=== PATIENT | male | born 1995 | race African-American/Black ===

== ENCOUNTER 2018-10-22 17:29 | Emergency (ER) | payer OTHER ==
[~2018-10-22] VITALS: Ht 175.3 cm; Wt 75.2 kg
[2018-10-22] MEDS ORDERED: ZOLO50TA PO (17:46)
[2018-10-22] MEDS ORDERED: TRAZ-186 PO (17:46)
[2018-10-22] MEDS ORDERED: ACETAMINOPHEN 325 MG TAB PO ONE (18:30)
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
[2018-10-22] MEDS ORDERED: IBUP-1022 PO (18:54)
[2018-10-22] MEDS ORDERED: ROBA500T PO (18:54)
[2018-10-22 18:57] VITALS: BP 113/61
== END 2018-10-22 19:05 | disposition home or self-care (01) ==
LOC: M ED 17:29
DX: S16.1XXA Strain of muscle, fascia and tendon at neck level, initial encounter (principal); S06.0X0A Concussion without loss of consciousness, initial encounter; V88.9XXA Person injured in other specified (collision)(noncollision) transport accidents involving nonmotor vehicle, nontraffic, initial encounter; Y92.89 Other specified places as the place of occurrence of the external cause; Z79.899 Other long term (current) drug therapy

== ENCOUNTER 2019-06-02 13:21 | Inpatient (IN) | payer OTHER ==
[~2019-06-02] VITALS: Ht 175.3 cm; Wt 78.0 kg
[~2019-06-02 13:21] MED LIST: IBUP-1022 PO; ROBA500T PO; TRAZ-186 PO; ZOLO50TA PO
[2019-06-02 14:04] LABS: BASO # 0.1 10^3/uL (0.0-0.2); BASO % 0.9 % (0.0-1.0); EOS % 0.7 % (0.0-3.0); HEMATOCRIT 48.3 % (42.0-52.0); LYMPH # 1.6 10^3/uL (1.5-5.0); LYMPH % 28.3 % (24.0-44.0); MEAN CORPUSCULAR HEMOGLOBIN 31.1 pg (27.0-33.0); MEAN CORPUSCULAR HGB CONC 35.2 g/dl (32.0-36.5); MEAN CORPUSCULAR VOLUME 88.5 fl (80.0-96.0); MONO # 0.4 10^3/uL (0.0-0.8); MONO % 6.6 % (0.0-5.0); NEUTROPHILS # 3.6 10^3/uL (1.5-8.5); NEUTROPHILS % 63.2 % (36.0-66.0); PLATELET COUNT, AUTOMATED 226 10^3/uL (150-450); RED BLOOD COUNT 5.46 10^6/uL (4.30-6.10); WHITE BLOOD COUNT 5.7 10^3/uL (4.0-10.0)
[2019-06-02 14:38] LABS: ACETAMINOPHEN LEVEL < 2.0 UG/ML (10.0-30.0); ALBUMIN 4.5 GM/DL (3.2-5.2); ALT/SGPT 26 U/L (12-78); BILIRUBIN,DIRECT 0.2 MG/DL (0.0-0.2); BILIRUBIN,TOTAL 0.8 MG/DL (0.2-1.0); BLOOD UREA NITROGEN 11 MG/DL (7-18); CALCIUM LEVEL 9.6 MG/DL (8.5-10.1); CARBON DIOXIDE LEVEL 28 MEQ/L (21-32); CHLORIDE LEVEL 106 MEQ/L (98-107); CREATININE FOR GFR 1.16 MG/DL (0.70-1.30); ETHYL ALCOHOL (ETHANOL) < 0.003 % (0.000-0.010); GLOMERULAR FILTRATION RATE > 60.0 (>60); GLUCOSE, FASTING 92 MG/DL (70-100); POTASSIUM SERUM 4.1 MEQ/L (3.5-5.1); SALICYLATE LEVEL < 1.7 MG/DL (5.0-30.0); SODIUM LEVEL 140 MEQ/L (136-145); THYROID STIMULATING HORMONE 0.932 uIU/ML (0.358-3.740); TOTAL PROTEIN 7.9 GM/DL (6.4-8.2)
[2019-06-02 14:51] LABS: AMPHETAMINES LEVEL URINE NEGATIVE (NEGATIVE); BARBITURATES URINE NEGATIVE (NEGATIVE); BENZODIAZEPINES URINE NEGATIVE (NEGATIVE); CANNABINOIDS URINE NEGATIVE (NEGATIVE); COCAINE METABOLITE URINE NEGATIVE (NEGATIVE); METHADONE URINE NEGATIVE (NEGATIVE); OPIATES URINE NEGATIVE (NEGATIVE); PHENCYCLIDINE URINE NEGATIVE (NEGATIVE)
[2019-06-02] MEDS ORDERED: MAALOX 30 ML SUSP *UDC PO PRN (15:45)
[2019-06-02] MEDS ORDERED: ACETAMINOPHEN TAB 650MG DOSE (2X325MG) PO PRN (15:45)
[2019-06-02] MEDS ORDERED: MOM 30ML SUSPENSION UDC PO PRN (15:45)
[2019-06-02] MEDS ORDERED: traZODone 50 MG TAB PO PRN (15:45)
[2019-06-02] MEDS ORDERED: BUPR150T3 PO (16:37)
[2019-06-02] MEDS ORDERED: TRAZ1TAB10 PO (16:37)
[2019-06-02] MEDS ORDERED: SERT50TA29 PO (16:37)
[2019-06-02] MEDS ORDERED: DISU250T PO (16:37)
[2019-06-02 16:45] VITALS: BP 135/81
[2019-06-03] VITALS (7 sets, daily range): BP systolic 120–144; BP diastolic 56–89
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
[2019-06-03] MEDS ORDERED: LORazepam 2 MG TAB PO PRN (08:30)
[2019-06-03] MEDS: MULTIVITAMINS/MINERALS THERAP 1 TAB PO SCH (09:45)
[2019-06-03] MEDS: THIAMINE 100 MG TAB PO SCH ×2 (09:45→20:27)
[2019-06-03] MEDS: FOLIC ACID 1 MG TAB PO SCH (09:46)
--- NOTE | 2019-06-03 10:04 | MHHPEPDOC ---
General Date Of Admission: Jun 02, 2019 Legal Status: 9.39 Chief Complaint "I'm having thoughts of stabbing myself". History of Present Illness HISTORY OF THE PRESENT ILLNESS: Patient is a 23 -year-old , AD, male, with a history of alcohol use d/o currently enrolled in [facility] at [place] who was seen at [facility] and made suicidal comments with a plan to stab himself with a steak knife. Per Ed pt admitted to a near suicide attempt to previous nightin which he held a knife to his neck and contemplated either stabbing or cutting himself. He stated in the ED "I'm just sick of this, being so depressed. I'm tired (of the depression)". He admitted to currently living off post alone as he and his are and she now lives in [place]. Per [facility] records 05/16/2019, pt started isolating himself, no getting along with hsi and parents and friends that he recently got angry with. Pt told [facility] that he continues to not talk with his mother due to anger about things and cannot forgive her. He endorsed passive SI of wishing he didn't wake up sometimes so he won't have to deal with his life. Also [facility] learned from pt's [facility] therapist that the pt started drinking some after getting out of the program which he did not tell [facility]. Psychiatric Review of Systems Depression (2 or more weeks): depressed mood, suicidal thoughts Tona (4 or more days of): denies Psychosis: denies PTSD: denies Anxiety: situational anxiety, stressor related anxiety Past Psychiatric History Previous Psychiatric Diagnosis: Alcohol use d/o, depression Previous Psychiatric Admissions: assisted alcohol rehab at [facility] Suicide Attempts: denies Psychiatric Follow-up: [facility] and [facility] Psychiatric medications: zoloft 50mg daily, trazodone 50mg qhs Past Medical History Medical Problems healthy adult Head Injury: No Seizures: No Hospitalizations: No Surgeries: No Family Medical/Psychiatric HX Medical Problems noncontributory Psychiatric Disorders: No Addiction: No Suicide Attemps/Completions: No Addiction History alcohol (in [facility] currently and bal neg), other (utox neg) Social History Childhood: Born and raised in [facility], 2 parent home with siblings Abuse/Trauma:denies Current Living Situation: lives alone in [place]. Education: high school grad Employment: [employer] Social Support: family, friends Legal: denies Marital: , lives in [place], no kids Mental Status Examination General Appearance: well groomed, appears stated age, hospital scubs/clothing Build: average Demeanor: average Eye Contact: fair Activity: average Behavior: cooperative Speech: clear, spontaneous, normal volume, reg/rate,rhythm,volume Mood: euthymic Mood "better" Affect: full, appropriate, congruent Thought Process: logical/linear, intact Thought Content (Delusions): none reported, denies SI, HI, AVH Thought Content (Other): none reported Thought Content (Aggressive): none reported Perception (Hallucinations): none reported Perception (Other): none reported Cognition (Impairment of): none reported Cognition(Intelligence Est.): average Oriented: Awake, Alert, Oriented times three Insight: fair Judgment: Fair Psychosis: Denies Diagnoses Adjustment d/o with depression and anxiety Alcohol use d/o A-FIB/CHADSVASC A-FIB History Current/History of A-Fib/PAF?: No Assessment Pt seen and states he's here due to having SI that "aren't there are anymore" and states he feels "just tired." States he's currently [facility] for alcohol use and states he's almost done with it completely and things are going well in the program. States he was thinking about all the things that happened last year and it made him feel overwhelmed with thoughts of SI. Denies that he feels he needs an increase in his zoloft that he states he's tolerating well and feels beneficial and wants to continue with his [facility]OC treatment that he states is beneficial. Denies SI/HI, hallucinations, delusions. Feels safe here. Initial Treatment Plan 1. Patient was admitted on a 9.39 status. 2. Complete history was obtained. 3. With patients permission, family will be contacted and database will be expanded. 4. Patients medication regimen will be reviewed and changed accordingly. 5. Patient will be provided with protected environment. 6. Patient will be treated with individual, group, and milieu therapies. 7. Patient will receive supportive psych-education. 8. Discharge planning will commence immediately. 9. Outpatient follow-up treatment will be strongly recommended. 10. The initial treatment plan will focus initially on: * Depression. * Risk for suicide. 11. continue zoloft 50mg daily ESTIMATED LENGTH OF STAY: 3-5 DAYS. TIME SPENT COUNSELING AND COORDINATING INITIAL CARE: 60 minutes. Vital Signs Vital Signs Date Time Temp Pulse Resp B/P (MAP) Pulse Ox O2 Delivery O2 Flow Rate FiO2 06/03/19 06:18 98.1 61 16 120/66 (84) 06/02/19 16:45 98 Room Air Laboratory Data 24H Labs Laboratory Tests 2 06/02/19 13:48: Urine Opiates Screen NEGATIVE, Urine Methadone Screen NEGATIVE, Urine Barbiturates Screen NEGATIVE, Urine Phencyclidine Screen NEGATIVE, Urine Amphetamines Screen NEGATIVE, Urine Benzodiazepines Screen NEGATIVE, Urine Cocaine Metabolite Screen NEGATIVE, Urine Cannabinoids Screen NEGATIVE 06/02/19 13:51: Immature Granulocyte % (Auto) 0.3, Neutrophils (%) (Auto) 63.2, Lymphocytes (%) (Auto) 28.3, Monocytes (%) (Auto) 6.6H, Eosinophils (%) (Auto) 0.7, Basophils (%) (Auto) 0.9, Neutrophils # (Auto) 3.6, Lymphocytes # (Auto) 1.6, Monocytes # (Auto) 0.4, Eosinophils # (Auto) 0.0, Basophils # (Auto) 0.1, Nucleated Red Blood Cells % (auto) 0.0, Anion Gap 6L, Glomerular Filtration Rate > 60.0, Calcium Level 9.6, Total Bilirubin 0.8, Direct Bilirubin 0.2, Aspartate Amino Transf (AST/SGOT) 15, Alanine Aminotransferase (ALT/SGPT) 26, Alkaline Phosphatase 95, Total Protein 7.9, Albumin 4.5, Albumin/Globulin Ratio 1.32, Thyroid Stimulating Hormone (TSH) 0.932, Salicylates Level < 1.7L, Acetaminophen Level < 2.0L, Ethyl Alcohol Level < 0.003 CBC/BMP Laboratory Tests 06/02/19 13:51 Medications Scheduled Bupropion Hcl (Bupropion Xl) 150 Mg Tab.er.24h, 300 MG PO DAILY for MOOD, (Reported) Disulfiram (Disulfiram) 250 Mg Tablet, 250 MG PO DAILY for ALCOHOL DEPENDENCY, (Reported) Sertraline HCl (Sertraline HCl) 50 Mg Tablet, 150 MG PO DAILY for MOOD, (Reported) Scheduled PRN Trazodone HCl (Trazodone HCl) 50 Mg Tablet, 50 MG PO QHS PRN for SLEEP, (Reported) Allergies Coded Allergies: No Known Allergies (Unverified , 10/22/18) RATNA RITTER DO Jun 03, 2019 10:04
[2019-06-03] MEDS: buPROPion **XL** TABLET 150MG (WELLBUTRIN XL) PO SCH (14:17)
[2019-06-03] MEDS: SERTRALINE HCL 50 MG TAB PO SCH (14:17)
[2019-06-04 06:28] VITALS: BP 126/53
[2019-06-04] MEDS ORDERED: DISU250T PO (08:17)
[2019-06-04] MEDS ORDERED: TRAZ1TAB10 PO (08:17)
[2019-06-04] MEDS ORDERED: SERT50TA29 PO (08:17)
[2019-06-04] MEDS ORDERED: BUPR150T3 PO (08:17)
--- NOTE | 2019-06-04 08:18 | MHDSPDOC ---
[facility] Discharge Summary Discharge Summary DATE OF ADMISSION: Jun 02, 2019 at 3:37 pm DATE OF DISCHARGE: Jun 04, 2019 DISCHARGE DIAGNOSES: Adjustment d/o with depression and anxiety Alcohol use d/o REASON FOR ADMISSION: Patient is a 23 -year-old , AD, male, with a history of alcohol use d/o currently enrolled in [facility] at [place] who was seen at [facility] and made suicidal comments with a plan to stab himself with a steak knife. Per Ed pt admitted to a near suicide attempt to previous nightin which he held a knife to his neck and contemplated either stabbing or cutting himself. He stated in the ED "I'm just sick of this, being so depressed. I'm tired (of the depression)". He admitted to currently living off post alone as he and his are and she now lives in [place]. Per [facility] records 05/16/2019, pt started isolating himself, no getting along with hsi and parents and friends that he recently got angry with. Pt told [facility] that he continues to not talk with his mother due to anger about things and cannot forgive her. He endorsed passive SI of wishing he didn't wake up sometimes so he won't have to deal with his life. Also [facility] learned from pt's S[facility] therapist that the pt started drinking some after getting out of the program which he did not tell [facility]. Pt seen and states he's here due to having SI that "aren't there are anymore" and states he feels "just tired." States he's currently [facility] for alcohol use and states he's almost done with it completely and things are going well in the program. States he was thinking about all the things that happened last year and it made him feel overwhelmed with thoughts of SI. Denies that he feels he needs an increase in his zoloft that he states he's tolerating well and feels beneficial and wants to continue with his [facility] treatment that he states is beneficial. Denies SI/HI, hallucinations, delusions. Feels safe here. CONSULTANTS INVOLVED: none TREATMENT AND PROGRESS ON THE UNIT :Pt was admitted to [facility], [facility], seen for psychiatric assessment and restarted on his outpatient medication zoloft 150mg daily and wellbutrin xl 300mg daily. He was given a prescription for antabus 250mg daily upon d/c for alcohol use d/o. He was provided trazodone 50mg qhs prn insomnia. Pt found his medications beneficial and tolerated them well. He attended groups daily during his stay. His symptoms improved with treatment. On day of discharge he denied depression, anxiety, insomnia, SI/HI, hallucinations, delusions. He was discharged home after Misti meeting with follow-up at [facility] and [facility]. He felt safe for discharge. DISCHARGE ASSESSMENT: Pt seen and states that his mood is "good" and that he's looking forward to going home today with his Misti. States he slept well last night. Feels he is tolerating his medications and they're beneficial. He is attending groups and finding them helpful. He denies depression, anxiety, insomnia, SI/HI, hallucinations, delusions. Pt feels safe to d/c home with his Misti today. MENTAL STATUS EXAMINATION ON DISCHARGE: General Appearance: well groomed, appears stated age, hospital scubs/clothing Build: average Demeanor: average Eye Contact: fair Activity: average Behavior: cooperative Speech: clear, spontaneous, normal volume, reg/rate,rhythm,volume Mood: euthymic Mood "good" Affect: full, appropriate, congruent Thought Process: logical/linear, intact Thought Content (Delusions): none reported, denies SI, HI, AVH Thought Content (Other): none reported Thought Content (Aggressive): none reported Perception (Hallucinations): none reported Perception (Other): none reported Cognition (Impairment of): none reported Cognition(Intelligence Est.): average Oriented: Awake, Alert, Oriented times three Insight: good Judgment: good Psychosis: Denies MEDICATIONS ON DISCHARGE: zoloft 150mg daily wellbutrin xl 300mg daily antabuse 250mg daily trazodone 50mg qhs prn insomnia. PLAN/FOLLOWUP ARRANGEMENTS: D/c home with Misti with follow-up at [facility] and [facility] The amount of time spent in the coordination of care for this patient was ap proximately 30 minutes. Vital Signs/I&Os Vital Signs Date Time Temp Pulse Resp B/P (MAP) Pulse Ox O2 Delivery O2 Flow Rate FiO2 06/04/19 06:28 98.6 68 16 126/53 (77) 06/03/19 14:45 97 Room Air Medications Scheduled Bupropion Hcl (Bupropion Xl) 150 Mg Tab.er.24h, 300 MG PO DAILY for MOOD, (Reported) Disulfiram (Disulfiram) 250 Mg Tablet, 250 MG PO DAILY for ALCOHOL DEPENDENCY, (Reported) Sertraline HCl (Sertraline HCl) 50 Mg Tablet, 150 MG PO DAILY for MOOD, (Reported) Scheduled PRN Trazodone HCl (Trazodone HCl) 50 Mg Tablet, 50 MG PO QHS PRN for SLEEP, (Reported) Allergies Coded Allergies: No Known Allergies (Unverified , 10/22/18) RATNA RITTER DO Jun 04, 2019 8:18 am
[2019-06-04] MEDS: THIAMINE 100 MG TAB PO SCH (08:31)
[2019-06-04] MEDS: FOLIC ACID 1 MG TAB PO SCH (08:32)
[2019-06-04] MEDS: SERTRALINE HCL 50 MG TAB PO SCH (08:32)
[2019-06-04] MEDS: buPROPion **XL** TABLET 150MG (WELLBUTRIN XL) PO SCH (08:32)
[2019-06-04] MEDS: MULTIVITAMINS/MINERALS THERAP 1 TAB PO SCH (08:32)
--- NOTE | 2019-06-04 10:36 | IPNPDOC ---
Text Note Date of Service The patient was seen on 06/04/19. NOTE Time of service 7:35 AM S The patient denies having any acute complaint, chest pain, cough, shortness of breath, or fever. He denies having SI this morning. O Vital Signs Date Time Temp Pulse Resp B/P (MAP) Pulse Ox O2 Delivery O2 Flow Rate FiO2 06/02/19 13:50 97.8 68 20 145/72 (96) 100 06/02/19 16:45 Room Air GEN: well-nourished / well developed/ NAD HEENT: NCAT / lips acyanotic /mucus membranes moist and pink / sclera anicteric/ abdominojugular reflux CVS: RRR/NMRG/ no JVP / radial and dorsalis pedis pulses intact / no lower extremity edema LUNGS: able to speak full sentences without stopping to take a breath / no coughing / lungs are clear to auscultation bilaterally on room air ABDOMEN: abdomen is tympanic on percussion, soft & not tender with palpation MSK/EXTREMITIES: range of motion intact in all 4 extremities / gait normal NEURO: CN 2-12 are grossly intact / speech is not dysarthric PSYCH: alert and oriented to person place and time/ able to understand and follow all commands A&P is a 23-year-old with history of depression who was admitted for suicidal ideation; we were consulted for medical comanagement. 1. Depression with suicidal ideation - plan per psych 2. History of alcohol abuse- [facility] protocol with thiamine, multivitamin, folic acid, and Ativan when necessary 3. Screening and prevention - offer the influenza vaccine if he has not already received it 4. Pre-hypertension - low-salt diet / he can follow-up with his PCP to monitor his BP Thank you for consulting us. We will sign off. TINY NOLEN MD Jun 04, 2019 10:36
== END 2019-06-04 10:00 | disposition home or self-care (01) | DRG 882 ==
LOC: M ED 13:21 → M ED INP 15:37 → M PSY 16:25
PROVIDERS: ADMIT Psychiatry & Neurology Psychiatry; ATTEND Psychiatry & Neurology Psychiatry
DX: F43.23 Adjustment disorder with mixed anxiety and depressed mood (principal); R45.851 Suicidal ideations; F10.10 Alcohol abuse, uncomplicated; R03.0 Elevated blood-pressure reading, without diagnosis of hypertension; Z79.899 Other long term (current) drug therapy; Z63.5 Disruption of family by separation and divorce